=== PATIENT | female | born 1970 | race Caucasian/White ===

== ENCOUNTER 2016-04-14 06:44 | Emergency (ER) | payer OTHER ==
[~2016-04-14] VITALS: Ht 177.8 cm; Wt 68.0 kg
[2016-04-14 06:50] VITALS: BP 130/90; PULSE 56; RESP 16; TEMP 97; O2SAT 98
--- NOTE | 2016-04-14 06:50 | NUR ---
Placed in room 02 . Placed on engine monitor, blood pressure machine and pulse oximeter. To gown for exam. Side rails up. Report given to RN.
--- NOTE | 2016-04-14 06:58 | NUR ---
Unable to obtain urine, patient ambulated to bathroom and unable to provide urine sample.
[2016-04-14] MEDS ORDERED: NACL 0.9% 1,000 ML IV ONE (07:00)
--- NOTE | 2016-04-14 07:10 | NUR ---
Dr. Tan examined pt at [id number]
--- NOTE | 2016-04-14 07:15 | NUR ---
Patient resting in bed, stable condition, alert and oriented x4 but lethargic. States drank 1.5 bottles of wine and took a xanex due to recent divorice. States has pain in right hip, mechanism of injury unknown. Bruising noted to right hip. No deformities noted to body. Denies any passing out. No other complaints/injuries per patient or noted.
[2016-04-14 07:43] LABS: BASOPHILS % (AUTO) 0.4 % (0.0-2.0); EOSINOPHILS # (AUTO) 0.1 K/uL (0.0-0.4); EOSINOPHILS % (AUTO) 0.9 % (0.0-4.0); HEMATOCRIT 29.2 % (36-48); HEMOGLOBIN 8.9 g/dL (12.0-16.0); LYMPHOCYTES # (AUTO) 1.2 K/uL (1.0-5.5); LYMPHOCYTES % (AUTO) 20.9 % (20.5-51.5); MEAN CORPUSCULAR HEMOGLOBIN 21 pg (27-31); MEAN CORPUSCULAR HGB CONC 31 % (32-36); MEAN CORPUSCULAR VOLUME 69 fL (79.0-98.0); MONOCYTES # (AUTO) 0.4 K/uL (0.0-1.0); MONOCYTES % (AUTO) 6.9 % (1.7-9.3); NEUTROPHILS # (AUTO) 4.3 K/uL (1.8-7.7); NEUTROPHILS % (AUTO) 70.9 % (40.0-70.0); PLATELET COUNT (AUTO) 180 K/uL (130-430); RED BLOOD CELL COUNT(AUTO) 4.24 MIL/uL (4.2-6.2); RED CELL DISTRIBUTION WIDTH 18.7 % (9.0-15.0)
[2016-04-14 07:51] LABS: ANION GAP 6 (5-15); CALCIUM 8.6 mg/dL (8.4-11.0); CHLORIDE 109 mmol/L (98-107); CREATININE 0.83 mg/dL (0.55-1.30); GLUCOSE 78 mg/dL (70-99); POTASSIUM 3.5 mmol/L (3.5-5.1); SODIUM SERUM 145 mmol/L (136-145); UREA NITROGEN, BLOOD 7 mg/dL (8-21)
[2016-04-14 07:52] LABS: GFR AFRICAN AMERICAN 96 mL/min (>90)
[2016-04-14 07:56] LABS: ALANINE AMINOTRANSFERASE 27 U/L (12-78); ALBUMIN 3.9 g/dL (3.4-4.8); ALCOHOL, BLOOD 120 mg/dL (<10); ASPARTATE AMINOTRANSFERASE 27 U/L (10-37); CREATINE KINASE, TOTAL 299 U/L (26-192); SALICYLATE 4 mg/dL (3-30); TOTAL BILIRUBIN 0.2 mg/dL (0.0-1.0); TOTAL PROTEIN, SERUM 7.8 g/dL (6.4-8.3)
[2016-04-14 07:57] LABS: PROTHROMBIN TIME 10.6 SECS (9.5-12.5)
[2016-04-14 07:57] LABS: BILIRUBIN,URINE NEGATIVE (NEGATIVE); BLOOD, URINE 1+ (NEGATIVE); CLARITY/URINE CLEAR (CLEAR); COLOR,URINE YELLOW (YELLOW); GLUCOSE,URINE NEGATIVE (NEGATIVE); KETONES,URINE NEGATIVE (NEGATIVE); LEUKOCYTE ESTERASE ,URINE 2+ (NEGATIVE); NITRITE, URINE NEGATIVE (NEGATIVE); PROTEIN URINE NEGATIVE (NEGATIVE); UROBILINOGEN,URINE 0.2 (0.2-1.0)
[2016-04-14 08:12] LABS: BARBITURATE, URINE NEGATIVE (NEG <=200); BENZODIAZEPINE, URINE POSITIVE (NEG <=150); CANNABINOID, URINE NEGATIVE (NEG <=50); COCAINE, URINE NEGATIVE (NEG <=150); METHAMPHETAMINES SCREEN,URINE NEGATIVE (NEG <=500); OPIATE, URINE NEGATIVE (NEG <=100); PHENCYCLIDINE SCREEN,URINE NEGATIVE (NEG <=25); UR TRICYCLIC ANTIDEPRESSANTS NEGATIVE (NEG <=300); URINE AMPHETAMINE NEGATIVE (NEG <=500); URINE METHADONE NEGATIVE (NEG <=200); URINE OXYCODONE SCREEN NEGATIVE (NEG <=100); URINE PROPOXYPHENE SCREEN NEGATIVE (NEG <=300)
[2016-04-14 08:13] LABS: BACTERIA,URINE MANY /HPF (None Seen); MUCUS,URINE None Seen /LPF (None Seen); WBC,URINE 20-50 /HPF (0-3)
[2016-04-14 08:20] LABS: ACETAMINOPHEN < 1 ug/mL (1-30); CREATINE KINASE MB 3.1 ng/mL (0-3.6)
--- NOTE | 2016-04-14 08:22 | NUR ---
Patient returned from xray via [facility]
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
--- NOTE | 2016-04-14 08:30 | NUR ---
Rectal examination performed by Dr. Mckeon. Self at bedside as witness. No bleeding noted. Patient tolerated well.
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
[2016-04-14 09:25] VITALS: BP 120/71; PULSE 63; RESP 18; TEMP 97.1; O2SAT 98
--- NOTE | 2016-04-14 09:25 | NUR ---
Patient given written and verbal discharge instructions and verbalizes understanding. ER MD discussed with patient the results and treatment provided. Given copies of tests performed in ER. Patient in stable condition. ID arm band removed. IV catheter removed intact and dressing applied, no active bleeding. Rx of Keflex and Motrin given. Patient educated on pain management and to follow up with PMD. Pain Scale 0/10. Opportunity for questions provided and answered. Addendum: 04/14/16 at 0945 by MARIA PMD in 2 days per MD order
--- NOTE | 2016-04-16 10:56 | NUR ---
Final C & S report reviewed, identified organism is suseptible to Keflex as previously prescribed.
== END 2016-04-14 09:25 | disposition home or self-care (01) ==
LOC: SED 06:44
DX: S70.01XA Contusion of right hip, initial encounter (principal); F10.229 Alcohol dependence with intoxication, unspecified; F17.200 Nicotine dependence, unspecified, uncomplicated; V09.9XXA Pedestrian injured in unspecified transport accident, initial encounter; Y93.01 Activity, walking, marching and hiking; Y99.8 Other external cause status; Y92.410 Unspecified street and highway as the place of occurrence of the external cause
CPT/HCPCS: 36415; 73510; 80053; 80307; 81000; 81025; 82550; 82553; 84484; 85025; 85610; 85730; 87086; 87186; 96360; 99285; G0480; G0481; G0482; J7030

== ENCOUNTER 2016-05-22 21:03 | Inpatient (IN) | payer OTHER ==
[~2016-05-22] VITALS: Ht 177.8 cm; Wt 65.3 kg
[2016-05-22 21:34] VITALS: BP_SYST 114
[2016-05-22 22:06] LABS: BASOPHILS % (AUTO) 0.6 % (0.0-2.0); EOSINOPHILS % (AUTO) 0.9 % (0.0-4.0); HEMATOCRIT 30.6 % (36-48); HEMOGLOBIN 9.6 g/dL (12.0-16.0); LYMPHOCYTES # (AUTO) 1.3 K/uL (1.0-5.5); LYMPHOCYTES % (AUTO) 31.8 % (20.5-51.5); MEAN CORPUSCULAR HEMOGLOBIN 21 pg (27-31); MEAN CORPUSCULAR HGB CONC 31 % (32-36); MEAN CORPUSCULAR VOLUME 68 fL (79.0-98.0); MONOCYTES # (AUTO) 0.2 K/uL (0.0-1.0); MONOCYTES % (AUTO) 4.3 % (1.7-9.3); NEUTROPHILS # (AUTO) 2.5 K/uL (1.8-7.7); NEUTROPHILS % (AUTO) 62.4 % (40.0-70.0); PLATELET COUNT (AUTO) 150 K/uL (130-430); RED CELL DISTRIBUTION WIDTH 22.5 % (9.0-15.0)
[2016-05-22 22:13] LABS: ANION GAP 11 (5-15); CHLORIDE 105 mmol/L (98-107); CREATININE 0.96 mg/dL (0.55-1.30); GLUCOSE 80 mg/dL (70-99); POTASSIUM 3.5 mmol/L (3.5-5.1); SODIUM SERUM 140 mmol/L (136-145); UREA NITROGEN, BLOOD 7 mg/dL (8-21)
[2016-05-22 22:17] LABS: GFR AFRICAN AMERICAN 81 mL/min (>90)
[2016-05-22 22:18] LABS: ALANINE AMINOTRANSFERASE 32 U/L (12-78); ALBUMIN 4.2 g/dL (3.4-4.8); ALCOHOL, BLOOD 249 mg/dL (<10); ASPARTATE AMINOTRANSFERASE 33 U/L (10-37); TOTAL BILIRUBIN 0.3 mg/dL (0.0-1.0); TOTAL PROTEIN, SERUM 7.6 g/dL (6.4-8.3)
[2016-05-22 22:23] LABS: ACETAMINOPHEN < 1 ug/mL (1-30)
[2016-05-22 22:27] LABS: SALICYLATE 5 mg/dL (3-30)
[2016-05-22] MEDS ORDERED: NACL 0.9% 1,000 ML IV ONE ×2 (22:30→23:15)
[2016-05-23] VITALS (10 sets, daily range): BP systolic 91–120
[2016-05-23] MEDS ORDERED: ONDANSETRON HCL 4 MG/2 ML VIAL IVP PRN (00:15)
[2016-05-23] MEDS ORDERED: ALBUTEROL SULFATE 0.083% 2.5 MG/3 ML VIAL.NEB INH PRN (00:15)
[2016-05-23] MEDS ORDERED: SER100 PO (00:26)
[2016-05-23] MEDS ORDERED: D5/0.45 NS 500 ML IV SCH (00:30)
[2016-05-23] MEDS ORDERED: ENOXAPARIN SODIUM 30 MG/0.3 ML SYRINGE SUBCUT SCH (09:00)
[2016-05-23 09:34] LABS: BASOPHILS % (AUTO) 0.4 % (0.0-2.0); EOSINOPHILS % (AUTO) 0.8 % (0.0-4.0); HEMATOCRIT 27.1 % (36-48); LYMPHOCYTES # (AUTO) 0.8 K/uL (1.0-5.5); LYMPHOCYTES % (AUTO) 19.7 % (20.5-51.5); MEAN CORPUSCULAR HEMOGLOBIN 22 pg (27-31); MEAN CORPUSCULAR HGB CONC 31 % (32-36); MEAN CORPUSCULAR VOLUME 69 fL (79.0-98.0); MONOCYTES # (AUTO) 0.2 K/uL (0.0-1.0); NEUTROPHILS # (AUTO) 3.2 K/uL (1.8-7.7); NEUTROPHILS % (AUTO) 74.1 % (40.0-70.0); PLATELET COUNT (AUTO) 131 K/uL (130-430); RED BLOOD CELL COUNT(AUTO) 3.92 MIL/uL (4.2-6.2); RED CELL DISTRIBUTION WIDTH 22.6 % (9.0-15.0); WHITE BLOOD COUNT (AUTO) 4.3 K/uL (4.8-10.8)
[2016-05-23 09:41] LABS: HEMOGLOBIN 8.4 g/dL (12.0-16.0)
[2016-05-23 09:56] LABS: ALBUMIN 3.4 g/dL (3.4-4.8); CALCIUM 7.8 mg/dL (8.4-11.0); CREATININE 0.97 mg/dL (0.55-1.30); POTASSIUM 4.2 mmol/L (3.5-5.1); TOTAL BILIRUBIN 0.4 mg/dL (0.0-1.0); TOTAL PROTEIN, SERUM 6.3 g/dL (6.4-8.3)
[2016-05-23 10:00] LABS: IRON (SERUM) 16 mcg/dL (37-145); TOTAL IRON BIND. CAPACITY 344 ug/dL (250-450)
[2016-05-23] MEDS ORDERED: ACETAMINOPHEN 325 MG TABLET PO PRN (10:30)
[2016-05-23] MEDS ORDERED: ACETAMINOPHEN 325 MG TABLET ONE (10:35)
[2016-05-23] MEDS ORDERED: chlordiazePOXIDE HCL 25 MG CAPSULE PO PRN (12:15)
[2016-05-23] MEDS ORDERED: THIAMINE HCL 100 MG TABLET PO ONE (12:30)
[2016-05-23] MEDS ORDERED: MULTIVITAMINS TAB 1 TABLET PO ONE (12:30)
[2016-05-24] MEDS ORDERED: THIAMINE HCL 100 MG TABLET PO SCH (09:00)
[2016-05-24] MEDS ORDERED: MULTIVITAMINS TAB 1 TABLET PO SCH (09:00)
== END 2016-05-23 16:46 | DRG 918 ==
LOC: SED 21:03 → SIC 05-23 00:04
DX: T43.221A Poisoning by selective serotonin reuptake inhibitors, accidental (unintentional), initial encounter (principal); F33.2 Major depressive disorder, recurrent severe without psychotic features; F10.10 Alcohol abuse, uncomplicated; D64.9 Anemia, unspecified; Y92.89 Other specified places as the place of occurrence of the external cause
CPT/HCPCS: 36415; 80053; 83540-TC; 83550-TC; 85025; 85610-TC; 87081; 93005; 96360; 96361; 99285; G0480; G0481; G0482; J1650; J7030

== ENCOUNTER 2016-06-27 01:10 | Emergency (ER) | payer OTHER ==
[~2016-06-27] VITALS: Ht 177.8 cm; Wt 65.8 kg
[2016-06-27 01:10] VITALS: BP_SYST 104
[~2016-06-27 01:10] MED LIST: SER100 PO
--- NOTE | 2016-06-27 01:10 | NUR ---
Patient to [facility] for evaluation. Report given to Ken CHAU.
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
--- NOTE | 2016-06-27 01:18 | NUR ---
MD Valdez at bedside examining pt
[2016-06-27 01:33] VITALS: BP_SYST 106
--- NOTE | 2016-06-27 01:33 | NUR ---
Patient given written and verbal discharge instructions and verbalizes understanding. ER MD Valdez discussed with patient the results and treatment provided. Patient in stable condition. ID arm band removed. No rx given. Patient educated on pain management and to follow up with PMD. Pain Scale 0/10. Opportunity for questions provided and answered.
== END 2016-06-27 01:33 ==
LOC: SED 01:10
DX: Z02.89 Encounter for other administrative examinations (principal)
CPT/HCPCS: 99283

== ENCOUNTER 2019-01-27 00:32 | Inpatient (IN) | payer OTHER ==
[~2019-01-27] VITALS: Ht 177.8 cm; Wt 73.5 kg
[2019-01-27 00:45] VITALS: BP_SYST 153
[2019-01-27] MEDS ORDERED: MORPHINE 2 MG/ML INJ. SYRINGE IVP ONE (01:00)
[2019-01-27] MEDS ORDERED: ONDANSETRON HCL 4 MG/2 ML VIAL IVP ONE (01:00)
[2019-01-27 01:22] LABS: BASOPHILS # (AUTO) 0.1 K/uL (0.0-0.2); BASOPHILS % (AUTO) 1.7 % (0.0-2.0); EOSINOPHILS % (AUTO) 0.2 % (0.0-4.0); HEMATOCRIT 26.8 % (36-48); HEMOGLOBIN 8.2 g/dL (12.0-16.0); LYMPHOCYTES % (AUTO) 24.7 % (20.5-51.5); MEAN CORPUSCULAR HEMOGLOBIN 19 pg (27-31); MEAN CORPUSCULAR HGB CONC 31 % (32-36); MEAN CORPUSCULAR VOLUME 63 fL (79.0-98.0); MONOCYTES # (AUTO) 0.3 K/uL (0.0-1.0); MONOCYTES % (AUTO) 6.8 % (1.7-9.3); NEUTROPHILS # (AUTO) 2.6 K/uL (1.8-7.7); NEUTROPHILS % (AUTO) 66.6 % (40.0-70.0); PLATELET COUNT (AUTO) 211 K/uL (130-430); RED BLOOD CELL COUNT(AUTO) 4.24 MIL/uL (4.2-6.2); RED CELL DISTRIBUTION WIDTH 20.1 % (9.0-15.0); WHITE BLOOD COUNT (AUTO) 3.9 K/uL (4.8-10.8)
[2019-01-27 01:38] LABS: CREATININE 0.73 mg/dL (0.55-1.30); POTASSIUM 3.2 mmol/L (3.5-5.1)
[2019-01-27 01:43] LABS: PROTHROMBIN TIME 9.6 SECS (9.5-12.5)
[2019-01-27 01:54] LABS: ALBUMIN 3.8 g/dL (3.4-4.8); TOTAL BILIRUBIN 0.2 mg/dL (0.0-1.0)
[2019-01-27] MEDS ORDERED: IOHEXOL 350 mgI/mL, 150 ML INFUS..BTL IV ONE (02:01)
[2019-01-27] MEDS ORDERED: POTASSIUM CHLORIDE 20 MEQ TAB.PRT.SR PO ONE (03:45)
[2019-01-27] MEDS ORDERED: NS 500 ML IV ONE (03:45)
[2019-01-27] MEDS ORDERED: NACL 0.9% 1,000 ML IV SCH (04:02)
[2019-01-27] MEDS ORDERED: MORPHINE 2 MG/ML INJ. SYRINGE IVP PRN (04:15)
[2019-01-27] MEDS ORDERED: LORazepam 2 MG/ML VIAL IVP PRN (04:15)
[2019-01-27] MEDS ORDERED: MORPHINE 4 MG/ML INJ. SYRINGE IVP PRN (04:15)
[2019-01-27] MEDS ORDERED: ALBUTEROL SULFATE 0.083% 2.5 MG/3 ML VIAL.NEB INH PRN (04:15)
[2019-01-27] MEDS ORDERED: LABETALOL 100 MG/ 20ML VIAL IVP PRN (04:15)
[2019-01-27] MEDS ORDERED: ACETAMINOPHEN 325 MG TABLET PO PRN ×2 (04:15→09:45)
[2019-01-27] MEDS ORDERED: ONDANSETRON HCL 4 MG/2 ML VIAL IVP PRN (04:15)
[2019-01-27 07:32] VITALS: BP_SYST 125
[2019-01-27 08:56] VITALS: BP_SYST 125
[2019-01-27 09:00] VITALS: BP_SYST 125
[2019-01-27] MEDS ORDERED: QUEtiapine FUMARATE 100 MG TABLET PO SCH (09:00)
[2019-01-27] MEDS ORDERED: NITROGLYCERIN 0.4 MG TAB.SUBL SL PRN (09:45)
[2019-01-27] MEDS ORDERED: FAMO20TA8 PO (10:37)
[2019-01-27 10:45] LABS: EOSINOPHILS % (AUTO) 0.7 % (0.0-4.0); HEMATOCRIT 23.9 % (36-48); HEMOGLOBIN 7.4 g/dL (12.0-16.0); LYMPHOCYTES # (AUTO) 0.9 K/uL (1.0-5.5); LYMPHOCYTES % (AUTO) 29.1 % (20.5-51.5); MEAN CORPUSCULAR HEMOGLOBIN 19 pg (27-31); MEAN CORPUSCULAR HGB CONC 31 % (32-36); MEAN CORPUSCULAR VOLUME 62 fL (79.0-98.0); MONOCYTES # (AUTO) 0.3 K/uL (0.0-1.0); NEUTROPHILS # (AUTO) 1.8 K/uL (1.8-7.7); NEUTROPHILS % (AUTO) 60.2 % (40.0-70.0); PLATELET COUNT (AUTO) 192 K/uL (130-430); RED BLOOD CELL COUNT(AUTO) 3.84 MIL/uL (4.2-6.2); RED CELL DISTRIBUTION WIDTH 20.1 % (9.0-15.0)
[2019-01-27 11:38] LABS: POTASSIUM 4.6 mmol/L (3.5-5.1)
[2019-01-27 11:39] LABS: CALCIUM 7.9 mg/dL (8.4-11.0)
[2019-01-27 11:40] LABS: CREATININE 0.77 mg/dL (0.55-1.30); TOTAL BILIRUBIN 0.3 mg/dL (0.0-1.0)
[2019-01-27 11:41] LABS: ALBUMIN 3.4 g/dL (3.4-4.8)
[2019-01-27 17:21] VITALS: BP_SYST 110
[2019-01-28] MEDS ORDERED: PANTOPRAZOLE SODIUM 40 MG TAB PO SCH (09:00)
== END 2019-01-27 17:45 | disposition home or self-care (01) | DRG 206 ==
LOC: SED 00:32 → STU 03:47
PROVIDERS: ADMIT Internal Medicine Hospice and Palliative Medicine; ATTEND Internal Medicine Hospice and Palliative Medicine
DX: M94.0 Chondrocostal junction syndrome [Tietze] (principal); Q87.40 Marfan syndrome, unspecified; D50.9 Iron deficiency anemia, unspecified; F17.210 Nicotine dependence, cigarettes, uncomplicated; F41.9 Anxiety disorder, unspecified; M19.90 Unspecified osteoarthritis, unspecified site; Z79.899 Other long term (current) drug therapy; Z98.84 Bariatric surgery status; Z98.891 History of uterine scar from previous surgery
CPT/HCPCS: 36415; 71275; 72191; 74175; 80053; 80061; 82550-TC; 83540-TC; 83690-TC; 83880; 84484; 84702-TC; 85025; 85379; 85610-TC; 85730-TC; 93005; 93306; 96361; 96374; 96375; 99285; G0378; J2270; J2405; J7030; Q9967

== ENCOUNTER 2019-11-26 12:49 | Emergency (ER) | payer OTHER ==
[~2019-11-26] VITALS: Ht 177.8 cm; Wt 79.4 kg
[~2019-11-26 12:49] MED LIST changes: +FAMO20TA8 PO
--- NOTE | 2019-11-26 13:05 | NUR ---
Patient to ER bed 04 to gown for evaluation. Side rails up. Report given to KANDI ELENA.
[2019-11-26 13:10] VITALS: BP_SYST 99
--- NOTE | 2019-11-26 13:10 | NUR ---
Pt walked in to ER with c/o headache 6/10 and nausea x 2days, reports h/o gastric bypass. V/S stable, pt is afebrile. Currently resting in bed, will continue to monitor.
[2019-11-26] MEDS ORDERED: KETOROLAC TROMETHAMINE 60 MG/2 ML VIAL IM ONE (13:30)
[2019-11-26] MEDS ORDERED: ONDANSETRON 4 MG ODT TAB PO ONE (13:30)
--- NOTE | 2019-11-26 13:30 | NUR ---
ER Dr. Valdivia at bedside examining patient.
--- NOTE | 2019-11-26 13:30 | NUR ---
Urine dipped for and UA
[2019-11-26] MEDS ORDERED: DIPHENHYDRAMINE INJ 50 MG/ML VIAL IVP ONE (14:15)
[2019-11-26] MEDS ORDERED: NACL 0.9% 1,000 ML IV ONE (14:15)
[2019-11-26] MEDS ORDERED: PROCHLORPERAZINE EDISYLATE 10 MG/2 ML VIAL IVP ONE (14:15)
[2019-11-26 15:30] VITALS: BP_SYST 99
--- NOTE | 2019-11-26 15:30 | NUR ---
Patient given written and verbal discharge instructions and verbalizes understanding. ER MD discussed with patient the results and treatment provided. Patient in stable condition. ID arm band removed. IV catheter removed intact and dressing applied, no active bleeding. Rx of Motrin and Zofran given. Patient educated on pain management and to follow up with PMD. Pain Scale 0. Opportunity for questions provided and answered. Medication side effect fact sheet provided.
== END 2019-11-26 15:30 | disposition home or self-care (01) ==
LOC: SED 12:49
DX: R51 Headache (principal); R11.2 Nausea with vomiting, unspecified; F17.200 Nicotine dependence, unspecified, uncomplicated
CPT/HCPCS: 81002; 81025; 96361; 96372; 96374; 96375; 99284; J0780; J1200; J1885; J7030; Q0162

== ENCOUNTER 2020-11-23 08:36 | Emergency (ER) | payer OTHER, SELFPAY ==
[~2020-11-23] VITALS: Ht 177.8 cm; Wt 81.6 kg
[2020-11-23 08:36] VITALS: BP_SYST 113
[2020-11-23] MEDS ORDERED: PRED20TA PO (11:02)
[2020-11-23] MEDS ORDERED: ALBU8.5H8 INH (11:02)
[2020-11-23 11:34] VITALS: BP_SYST 122
== END 2020-11-23 11:33 | disposition home or self-care (01) ==
LOC: SED 08:36
DX: U07.1 COVID-19 (principal); J40 Bronchitis, not specified as acute or chronic; Z79.899 Other long term (current) drug therapy
CPT/HCPCS: 36415; 71045; 76376; 99284

== ENCOUNTER 2022-01-10 09:43 | Emergency (ER) | payer BC, OTHER ==
[~2022-01-10] VITALS: Ht 177.8 cm; Wt 83.9 kg
[~2022-01-10 09:43] MED LIST changes: +ALBU8.5H8 INH; +PRED20TA PO
--- NOTE | 2022-01-10 09:44 | NUR ---
Patient to ER bed 07 to gown for evaluation. Side rails up. Report RECEIVED FROM KANDI BAH.
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
[2022-01-10 09:47] VITALS: BP_SYST 157
--- NOTE | 2022-01-10 09:50 | NUR ---
ER at bedside examining patient.
[2022-01-10] MEDS ORDERED: KETOROLAC TROMETHAMINE 60 MG/2 ML VIAL IM ONE (10:00)
[2022-01-10] MEDS ORDERED: HYDROcodone/ACETAMIN 10-325 MG TAB PO ONE (10:00)
[2022-01-10 10:50] LABS: CALCIUM 7.4 mg/dL (8.4-11.0); CREATININE 0.75 mg/dL (0.55-1.30)
[2022-01-10 10:54] LABS: ALBUMIN 2.4 g/dL (3.4-4.8); C-REACTIVE PROTEIN QUANT 0.7 mg/dL (0-0.5); TOTAL BILIRUBIN 0.5 mg/dL (0.0-1.0)
[2022-01-10 11:00] LABS: BASOPHILS % (AUTO) 0.7 % (0.0-2.0); EOSINOPHILS % (AUTO) 0.2 % (0.0-4.0); HEMATOCRIT 36.5 % (36-48); HEMOGLOBIN 12.3 g/dL (12.0-16.0); LYMPHOCYTES # (AUTO) 0.6 K/uL (1.0-5.5); LYMPHOCYTES % (AUTO) 16.1 % (20.5-51.5); MEAN CORPUSCULAR HEMOGLOBIN 31 pg (27-31); MEAN CORPUSCULAR HGB CONC 34 % (32-36); MEAN CORPUSCULAR VOLUME 93 fL (79.0-98.0); MONOCYTES # (AUTO) 0.3 K/uL (0.0-1.0); MONOCYTES % (AUTO) 8.9 % (1.7-9.3); NEUTROPHILS # (AUTO) 2.6 K/uL (1.8-7.7); NEUTROPHILS % (AUTO) 74.1 % (40.0-70.0); PLATELET COUNT (AUTO) 122 K/uL (130-430); RED BLOOD CELL COUNT(AUTO) 3.95 MIL/uL (4.2-6.2); RED CELL DISTRIBUTION WIDTH 16.6 % (9.0-15.0); WHITE BLOOD COUNT (AUTO) 3.5 K/uL (4.8-10.8)
[2022-01-10 11:32] LABS: BILIRUBIN,URINE NEGATIVE (NEGATIVE); BLOOD, URINE 1+ (NEGATIVE); CLARITY/URINE CLEAR (CLEAR); COLOR,URINE YELLOW (YELLOW); GLUCOSE,URINE NEGATIVE (NEGATIVE); KETONES,URINE NEGATIVE (NEGATIVE); LEUKOCYTE ESTERASE ,URINE NEGATIVE (NEGATIVE); NITRITE, URINE NEGATIVE (NEGATIVE); PROTEIN URINE NEGATIVE (NEGATIVE); UROBILINOGEN,URINE 0.2 (0.2-1.0)
[2022-01-10 11:50] LABS: BACTERIA,URINE RARE /HPF (None Seen); RBC,URINE 0-3 /HPF (0-3); WBC,URINE 0-3 /HPF (0-3)
[2022-01-10] MEDS ORDERED: AMOXICILLIN/POTASSIUM CLAV 875 MG TABLET PO ONE (13:30)
[2022-01-10] MEDS ORDERED: AMOX-423 PO (13:32)
[2022-01-10] MEDS ORDERED: ONDA-8 TL (13:32)
[2022-01-10] MEDS ORDERED: IBUP-1969 PO (13:32)
--- NOTE | 2022-01-10 14:02 | NUR ---
Patient given written and verbal discharge instructions and verbalizes understanding. ER Dr. Sergio ARRIOLA discussed with patient the results and treatment provided. Patient in stable condition. ID arm band removed. IV catheter removed intact and dressing applied, no active bleeding. Rx of augmentim and ibuprofen given. Patient educated on pain management and to follow up with PMD. Pain Scale 4/10. Opportunity for questions provided and answered. Medication side effect fact sheet provided.
== END 2022-01-10 13:45 | disposition home or self-care (01) ==
LOC: SED 09:43
DX: K57.92 Diverticulitis of intestine, part unspecified, without perforation or abscess without bleeding (principal); M54.50 Low back pain, unspecified; Z79.899 Other long term (current) drug therapy
CPT/HCPCS: 99284; 74176; 96374; 80053; 81000; 82150; 84703; 83690; 85025; 86140; 36415; 76376; 81025; 83605; J1885

== ENCOUNTER 2022-11-18 20:22 | Emergency (ER) | payer BC ==
[~2022-11-18] VITALS: Ht 177.8 cm; Wt 77.1 kg
[~2022-11-18 20:22] MED LIST changes: +AMOX-423 PO; +IBUP-1969 PO; +ONDA-8 TL
[2022-11-18 20:27] VITALS: BP_SYST 149; PULSE 50; RESP 19; TEMP 97.9; O2SAT 100
[2022-11-18] MEDS ORDERED: ONDANSETRON HCL 4 MG/2 ML VIAL IVP ONE (21:00)
[2022-11-18] MEDS ORDERED: NACL 0.9% 1,000 ML IV ONE (21:00)
[2022-11-18] MEDS ORDERED: PANTOPRAZOLE SODIUM 40 MG/VIAL (PROTONIX) IVP ONE (21:00)
[2022-11-18] MEDS ORDERED: KETOROLAC TROMETHAMINE 30 MG VIAL IVP ONE (21:30)
[2022-11-18 21:40] LABS: BASOPHILS % (AUTO) 0.2 % (0.0-2.0); EOSINOPHILS % (AUTO) 0.1 % (0.0-4.0); HEMATOCRIT 41.9 % (36-48); HEMOGLOBIN 13.7 g/dL (12.0-16.0); LYMPHOCYTES # (AUTO) 0.7 K/uL (1.0-5.5); LYMPHOCYTES % (AUTO) 11.3 % (20.5-51.5); MEAN CORPUSCULAR HEMOGLOBIN 29 pg (27-31); MEAN CORPUSCULAR HGB CONC 33 % (32-36); MEAN CORPUSCULAR VOLUME 89 fL (79.0-98.0); MONOCYTES # (AUTO) 0.2 K/uL (0.0-1.0); MONOCYTES % (AUTO) 3.5 % (1.7-9.3); NEUTROPHILS # (AUTO) 5.2 K/uL (1.8-7.7); NEUTROPHILS % (AUTO) 84.9 % (40.0-70.0); PLATELET COUNT (AUTO) 116 K/uL (130-430); RED BLOOD CELL COUNT(AUTO) 4.74 MIL/uL (4.2-6.2); WHITE BLOOD COUNT (AUTO) 6.1 K/uL (4.8-10.8)
[2022-11-18 21:44] LABS: SERUM HCG (QUALITATIVE) NEGATIVE (NEGATIVE)
[2022-11-18 21:45] LABS: CALCIUM 8.7 mg/dL (8.4-11.0); CREATININE 0.76 mg/dL (0.55-1.30); POTASSIUM 3.3 mmol/L (3.5-5.1)
[2022-11-18 21:49] LABS: TOTAL BILIRUBIN 0.6 mg/dL (0.0-1.0); TOTAL PROTEIN, SERUM 7.5 g/dL (6.4-8.3)
[2022-11-18 21:59] LABS: BILIRUBIN,URINE NEGATIVE (NEGATIVE); BLOOD, URINE 3+ (NEGATIVE); CLARITY/URINE Clear (CLEAR); COLOR,URINE YELLOW (YELLOW); GLUCOSE,URINE NEGATIVE (NEGATIVE); KETONES,URINE 4+ (NEGATIVE); LEUKOCYTE ESTERASE ,URINE NEGATIVE (NEGATIVE); NITRITE, URINE NEGATIVE (NEGATIVE); PROTEIN URINE 1+ (NEGATIVE); UROBILINOGEN,URINE 0.2 (0.2-1.0)
[2022-11-18 22:12] LABS: BACTERIA,URINE None Seen /HPF (None Seen)
[2022-11-18] MEDS ORDERED: DIPHENHYDRAMINE INJ 50 MG/ML VIAL IVP ONE (23:00)
[2022-11-18] MEDS ORDERED: METOCLOPRAMIDE HCL 10 MG/2 ML VIAL IVP ONE (23:00)
[2022-11-18] MEDS ORDERED: MAG HYDROX/AL HYDROX/SIMETH 30 ML, LIDOCAINE VISCOUS 2% 15ML (PO) 15 ML, DICYCLOMINE HC... PO ONE ×3 (23:45)
[2022-11-18] MEDS ORDERED: OMEP20TA20 PO (23:47)
[2022-11-18] MEDS ORDERED: FAMO-132 PO (23:47)
[2022-11-18] MEDS ORDERED: SUCR1TAB2 PO (23:47)
[2022-11-18] MEDS ORDERED: ONDA-8 TL (23:47)
[2022-11-18] MEDS ORDERED: ANT30 PO (23:48)
[2022-11-19] MEDS ORDERED: MORPHINE 4 MG INJ. 4 MG/ML VIAL IVP ONE
[2022-11-19] MEDS ORDERED: ONDANSETRON HCL 4 MG/2 ML VIAL IVP ONE
[2022-11-19 01:52] VITALS: BP_SYST 131; PULSE 64; RESP 20; TEMP 98.1; O2SAT 97
== END 2022-11-19 00:48 | disposition home or self-care (01) ==
LOC: SED 20:22
DX: K29.70 Gastritis, unspecified, without bleeding (principal); R10.13 Epigastric pain; R11.2 Nausea with vomiting, unspecified; R19.7 Diarrhea, unspecified; Z79.899 Other long term (current) drug therapy
CPT/HCPCS: 99285; 74177; 96374; 96375 ×2; 96361; 80053; 81000; 84703; 83690; 85025; 36415; 76376; 96376; J2001; J1200; J1885; J2765; J2405 ×2; C9113; Q9967; J7030; J2270